=== PATIENT | female | born 1965 | race Caucasian/White ===

== ENCOUNTER 2019-02-24 21:37 | Emergency (ER) | payer SELFPAY ==
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
[2019-02-24] MEDS ORDERED: MORPHINE 2 MG/ML CARPUJECT IVP STA (23:44)
[2019-02-25 00:07] LABS: BASOPHILS # (AUTO) 0.1 10^3/uL (0.0-0.1); BASOPHILS % (AUTO) 1.1 %; EOSINOPHILS # (AUTO) 0.3 10^3/uL (0.0-0.7); EOSINOPHILS % (AUTO) 3.1 %; HGB - HEMOGLOBIN 14.7 g/dL (12.0-16.0); LYMPHOCYTES # (AUTO) 3.3 10^3/uL (1.5-3.5); LYMPHOCYTES % (AUTO) 41.1 %; MEAN CORPUSCULAR HGB CONC 34.7 g/dL (32.0-36.0); MEAN CORPUSCULAR VOLUME 95.1 fL (81.0-99.0); MEAN PLATELET VOLUME 8.7 fL (7.9-10.8); MONOCYTES # (AUTO) 0.6 10^3/uL (0.0-1.0); MONOCYTES % (AUTO) 7.8 %; NEUTROPHILS # (AUTO) 3.7 10^3/uL (1.5-6.6); NEUTROPHILS % (AUTO) 46.9 %; PLT - PLATELET COUNT 233 10^3/uL (130-450); RED BLOOD COUNT 4.44 10^6/uL (4.20-5.40); RED CELL DISTRIBUTION WIDTH 14.9 % (12.0-15.0)
[2019-02-25 00:17] LABS: ALBUMIN 4.3 g/dL (3.2-5.5); ALBUMIN/GLOBULIN RATIO 1.5 (1.0-2.2); BILIRUBIN,TOTAL 0.4 mg/dL (0.2-1.0); CALCIUM 9.2 mg/dL (8.5-10.3); CREATININE 0.9 mg/dL (0.4-1.0); TOTAL PROTEIN 7.1 g/dL (6.7-8.2)
[2019-02-25 00:22] LABS: TROPONIN I < 0.04 ng/mL (<0.49)
[2019-02-25 00:25] LABS: CREATINE KINASE MB 2.1 ng/mL (0.6-6.3)
[2019-02-25] MEDS ORDERED: IOVERSOL 320 100 ML VIAL IVP ONE ×4 (01:02→01:38)
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
[2019-02-25] MEDS ORDERED: oxyCODONE 5 MG TABLET PO STA (03:00)
[2019-02-25] MEDS ORDERED: POTASSIUM CHLORIDE 20 MEQ TABLET PO STA (03:01)
[2019-02-25 03:14] VITALS: BP 140/75
== END 2019-02-25 03:14 | disposition home or self-care (01) ==
LOC: EDBD → ED 21:37
DX: S22.22XA Fracture of body of sternum, initial encounter for closed fracture (principal); V43.52XA Car driver injured in collision with other type car in traffic accident, initial encounter; R06.2 Wheezing; F17.200 Nicotine dependence, unspecified, uncomplicated
CPT/HCPCS: 36415; 71046; 71260; 80053; 82550; 82553; 83690; 84484; 85025; 96374; 99283; A9270; Q9967

== ENCOUNTER 2019-03-14 15:22 | Emergency (ER) | payer MEDICAID ==
[2019-03-14] MEDS ORDERED: oxyCODONE 5 MG TABLET PO STA (15:45)
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
[2019-03-14 16:53] VITALS: BP 130/92
== END 2019-03-14 16:50 | disposition home or self-care (01) ==
LOC: ED 15:22
DX: S22.20XD Unspecified fracture of sternum, subsequent encounter for fracture with routine healing (principal); S16.1XXA Strain of muscle, fascia and tendon at neck level, initial encounter; R03.0 Elevated blood-pressure reading, without diagnosis of hypertension; F17.200 Nicotine dependence, unspecified, uncomplicated
CPT/HCPCS: 71046; 72040; 93005; 99283; A9270

== ENCOUNTER 2019-03-19 08:00 | Outpatient (CLI) | payer MEDICAID ==
[2019-03-19 19:03] LABS: CALCIUM 9.2 mg/dL (8.5-10.3)
== END 2019-03-19 23:59 | disposition home or self-care (01) ==
LOC: LAB.WCP 08:00
PROVIDERS: ATTEND Family Medicine
DX: E87.6 Hypokalemia (principal)
CPT/HCPCS: 36415; 80048

== ENCOUNTER 2019-04-03 10:46 | Outpatient (CLI) | payer MEDICAID ==
--- NOTE | 2019-04-03 17:04 | XRAY Report ---
Reason: LUMBAR SPINAL STENOSIS Procedure Date: 04/03/2019 Accession Number: [id number] / [id number] Procedure: XRN - Lumbar Spine 2 View CPT Code: FULL RESULT: EXAM: LUMBOSACRAL SPINE RADIOGRAPHY EXAM DATE: 04/03/2019 11:13 AM. CLINICAL HISTORY: Lumbar spinal stenosis. Back pain. COMPARISONS: None. TECHNIQUE: 3 views. FINDINGS: Alignment: Grade 1, 8 mm anterolisthesis of L4 on L5. No definite acute malalignment. Bones: Five abv-lto-uyskldm lumbar vertebral bodies are present. No fractures or bone lesions. Degenerative changes: Severe L5-S1 disk height loss. Mild L4-L5 disk height loss. No other significant degenerative changes seen. Soft Tissues: Normal. The visualized bowel gas pattern is normal. IMPRESSION: 1. Severe L5-S1 and mild L4-L5 degenerative disk disease. 2. Approximately 8 mm anterolisthesis of L4 on L5. This could be related to pars defects and/or degenerative changes. [facility]
== END 2019-04-03 10:47 | disposition home or self-care (01) ==
LOC: DI.N 10:46
PROVIDERS: ATTEND Family Medicine
DX: M51.36 Other intervertebral disc degeneration, lumbar region (principal); M51.37 Other intervertebral disc degeneration, lumbosacral region; M43.16 Spondylolisthesis, lumbar region
CPT/HCPCS: 72100

== ENCOUNTER 2019-05-02 12:23 | Day surgery (SDC) | payer MEDICAID ==
[2019-05-02] MEDS ORDERED: LACTATED RINGERS 1,000 ML IV ONE (13:01)
--- NOTE | 2019-05-02 13:18 | ANESTHESIA ---
Pre-Anesthesia VS, & Labs - Diagnosis abdominal pain - Procedure colonoscopy, EGD Vital Signs: Temp Pulse Resp BP Pulse Ox 36.8 C 86 18 138/94 H 98 05/02/19 12:37 05/02/19 12:37 05/02/19 12:37 05/02/19 12:37 05/02/19 12:37 Height 5 ft 8 in Weight (kg) 79 kg Body Mass Index 25.0 - NPO >8 hours - Is Patient ?: Not Applicable Home Medications and Allergies Home Medications: Ambulatory Orders Gabapentin 300 mg PO TID 04/23/19 Omeprazole 20 mg PO BID 04/23/19 Gabapentin 300 mg PO TID 04/23/19 Omeprazole 20 mg PO BID 04/23/19 Allergies/Adverse Reactions: Allergies Allergy/AdvReac Type Severity Reaction Status Date / Time Penicillins Allergy Hives Verified 03/14/19 15:31 varenicline [From Chantix] Allergy temporary Verified 04/23/19 10:39 memory loss Anes History & Medical History - Anesthetic History Anesthesia Complications: reports: Other-see comment (asthma attack) Family history of Anesthesia Complications: Denies Family history of Malignant Hyperthermia: Denies - Medical History Cardiovascular: reports: Hypertension, High cholesterol Pulmonary: reports: Asthma Gastrointestinal: reports: GERD, Ulcers Urinary: reports: None Musculoskeletal: reports: Chronic back pain, Other Endocrine/Autoimmune: reports: None Skin: reports: Other Smoking Status: Current every day smoker - Surgical History General: Colonoscopy, EGD Eyes Ears Nose Throat (EENT): Tonsil/Adenoidectomy Gynecologic: Hysterectomy Orthopedic: Other Exam General: Alert, Oriented x3, Cooperative, No acute distress Dental: Dentures full Upper, Dentures full Lower Mouth Openin Fingerbreadth Neck Mobility: Normal Mallampati classification: II Thyromental Distance: 4-6 cm Respiratory: Lungs clear, Normal breath sounds, No respiratory distress, No accessory muscle use Cardiovascular: Regular rate, Normal S1, Normal S2, No murmurs Plan Anesthesia Type: MAC Consent for Procedure(s) Verified and Reviewed: Yes Code Status: Attempt Resuscitation ASA classification: 3-Severe systemic disease Is this case an emergency?: No
[2019-05-02] MEDS ORDERED: LIDO GARGLE 30 ML BOTTLE ONE (13:22)
[2019-05-02] MEDS ORDERED: LIDO GARGLE 30 ML BOTTLE PO ONE (13:51)
[2019-05-02] MEDS ORDERED: LIDOCAINE-MPF 2% 5 ML VIAL IM ONE (14:17)
[2019-05-02] MEDS ORDERED: PROPOFOL 200 MG/20 ML VIAL IVP ONE (14:17)
[2019-05-02 14:42] VITALS: BP 128/64
== END 2019-05-02 12:24 | disposition home or self-care (01) ==
LOC: SDS 12:23
PROVIDERS: ATTEND Surgery
PROC: 0DB68ZX Excision of Stomach, Via Natural or Artificial Opening Endoscopic, Diagnostic (ICD-10-PCS; 2019-05-02)
PROC: 0DB58ZX Excision of Esophagus, Via Natural or Artificial Opening Endoscopic, Diagnostic (ICD-10-PCS; 2019-05-02)
PROC: 0DBP8ZZ Excision of Rectum, Via Natural or Artificial Opening Endoscopic (ICD-10-PCS; principal; 2019-05-02 14:00)
PROC: 0DB98ZX Excision of Duodenum, Via Natural or Artificial Opening Endoscopic, Diagnostic (ICD-10-PCS; 2019-05-02 14:00)
DX: K29.80 Duodenitis without bleeding (principal); K44.9 Diaphragmatic hernia without obstruction or gangrene; K21.9 Gastro-esophageal reflux disease without esophagitis; R10.32 Left lower quadrant pain; R10.31 Right lower quadrant pain; K62.1 Rectal polyp; K64.8 Other hemorrhoids; K64.4 Residual hemorrhoidal skin tags; G89.29 Other chronic pain; M54.9 Dorsalgia, unspecified; I10 Essential (primary) hypertension; F17.210 Nicotine dependence, cigarettes, uncomplicated; Z85.41 Personal history of malignant neoplasm of cervix uteri; Z90.710 Acquired absence of both cervix and uterus; Z79.891 Long term (current) use of opiate analgesic; Z87.09 Personal history of other diseases of the respiratory system; Z87.11 Personal history of peptic ulcer disease
CPT/HCPCS: 43239; 45380; 87081; A9270; J7120

== ENCOUNTER 2019-05-04 08:45 | Outpatient (CLI) | payer MEDICAID ==
[2019-05-04] MEDS ORDERED: GADOBUTROL 10 MMOL/10 ML VIAL ONE (10:05)
[2019-05-04] MEDS ORDERED: GADOBUTROL 10 MMOL/10 ML VIAL IV ONE (10:13)
--- NOTE | 2019-05-04 14:34 | MRI Report ---
Reason: LUMBAR SPINAL STENOSIS Procedure Date: 05/04/2019 Accession Number: [id number] / [id number] Procedure: MRI - Lumbar Spine W/WO CPT Code: FULL RESULT: EXAM: MRI LUMBAR SPINE WITHOUT AND WITH CONTRAST EXAM DATE: 05/04/2019 10:23 AM. CLINICAL HISTORY: Chronic low back pain. Bilateral leg weakness. COMPARISONS: None. TECHNIQUE: Multiplanar, multisequence T1-weighted and fluid-sensitive sequences of the lumbar spine from T12 to S1 before and after administration of intravenous contrast. Other: None. IV contrast: 8 mL of Gadavist. FINDINGS: Neurologic Structures: The conus terminates at L1-L2. The conus medullaris and cauda equina are unremarkable. Alignment: There is a 5 mm grade 1 anterolisthesis at L4-L5. Bone Marrow: Five xuy-kmr-hemziip lumbar vertebral bodies are assumed. There is Modic type II change at the anterior margin of the L1-L2 endplates. Disk Levels/Facets: T12-L1: Unremarkable. L1-L2: There is a left paracentral disk protrusion causing minimal canal narrowing. The foramina are patent. L2-L3: Unremarkable. L3-L4: There is a broad-based posterior disk bulge with moderate facet osteoarthritis and ligamentum flavum redundancy causing moderate canal narrowing. Mild left and moderate right foraminal narrowing. Endplate osteophytes posteriorly displace the right L3 nerve root lateral to the neural foramen. L4-L5: There is an anterolisthesis at this level. There is severe facet joint osteoarthritis and ligamentum flavum redundancy. The findings cause moderate canal narrowing with compression of both L5 nerve roots in the lateral recesses. The cauda equina nerve roots are bunched, but CSF is still visible between the nerve roots. There is moderate bilateral foraminal narrowing. L5-S1: There is disk desiccation and loss of disk height. There are circumferential osteophytes. There is a left paracentral disk extrusion posteriorly displacing the left S1 nerve root in the lateral recess. There is mild canal narrowing. There is severe right and mild left foraminal narrowing. On the right, a foraminal disk protrusion superiorly displaces the right L5 nerve root. Spinal Canal: No enhancing masses within the spinal canal. No epidural abscess. Musculature: Normal. No edema, abnormal enhancement, or fatty atrophy. Other: The visualized retroperitoneum is unremarkable. IMPRESSION: 1. Grade 1 anterolisthesis at L4-L5. 2. L3-L4: There is moderate canal narrowing. Mild left and moderate right foraminal narrowing. Endplate osteophytes posteriorly displace the right L3 nerve root lateral to the neural foramen. 3. L4-L5: The anterolisthesis and severe facet joint osteoarthritis cause moderate canal narrowing with compression of both L5 nerve roots in the lateral recesses. The cauda equina nerve roots are bunched, but CSF is still visible between the nerve roots. There is moderate bilateral foraminal narrowing. 4. L5-S1: There is a left paracentral disk extrusion posteriorly displacing the left S1 nerve root in the lateral recess. There is mild canal narrowing. There is severe right and mild left foraminal narrowing. On the right, a foraminal disk protrusion superiorly displaces the right L5 nerve root. Comment: The following findings are so common in adults without low back pain that while we report their presence, they must be interpreted with caution and in the context of the clinical situation. (Reference Dorisk et al, Spine 2001) Prevalence of findings in patients without low back pain: Disk degeneration (any evidence): 92% Disk desiccation/T2 signal loss: 83% Disk height loss: 56% Disk bulge: 64% Disk protrusion: 32% Annular tear/high intensity zone: 38% RADIA
== END 2019-05-04 08:46 | disposition home or self-care (01) ==
LOC: DI 08:45
PROVIDERS: ATTEND Family Medicine
DX: M48.061 Spinal stenosis, lumbar region without neurogenic claudication (principal); M47.816 Spondylosis without myelopathy or radiculopathy, lumbar region; M51.27 Other intervertebral disc displacement, lumbosacral region
CPT/HCPCS: 72158; A9585

== ENCOUNTER 2019-05-25 17:00 | Outpatient (CLI) | payer MEDICAID | END 2019-05-25 23:59 | disposition home or self-care (01) | LOC: LAB.R 17:00 | PROVIDERS: ATTEND Physician Assistant | DX: R35.0 Frequency of micturition (principal) | CPT/HCPCS: 87086 ==

== ENCOUNTER 2019-05-26 14:47 | Outpatient (CLI) | payer MEDICAID ==
--- NOTE | 2019-05-27 00:43 | XRAY Report ---
Reason: PRODUCTIVE COUGH PURULENT SPUTUM, CHEST WALL PAIN Procedure Date: 05/26/2019 Accession Number: [id number] / [id number] Procedure: XR - Ribs w/PA Chest LT CPT Code: FULL RESULT: EXAM: LEFT RIB RADIOGRAPHY EXAM DATE: 05/26/2019 03:08 PM. CLINICAL HISTORY: PRODUCTIVE COUGH PURULENT SPUTUM, CHEST WALL PAIN. COMPARISON: CHEST 2 VIEW 03/14/2019 4:08 PM. TECHNIQUE: 1 view of the chest and 2 views of the ribs. FINDINGS: Bones: Normal. No fracture or bone lesion. Lungs: No focal opacities. No pneumothorax. No pleural effusions. Mediastinum: Heart and mediastinal contours are unremarkable. Other: None. IMPRESSION: Normal chest and rib radiography. RADIA
== END 2019-05-26 14:48 | disposition home or self-care (01) ==
LOC: DI 14:47
PROVIDERS: ATTEND Physician Assistant
DX: R05 Cough (principal); R07.89 Other chest pain

== ENCOUNTER 2019-05-29 11:10 | Day surgery (SDC) | payer MEDICAID ==
[2019-05-29] MEDS ORDERED: CEFAZOLIN SODIUM IN 0.9 % NACL 2 GM/100 ML BAG IV ONE (11:32)
[2019-05-29] MEDS ORDERED: LACTATED RINGERS 1,000 ML IV ONE ×2 (11:50→13:40)
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
[2019-05-29] MEDS ORDERED: LIDOCAINE 1%-EPI 1:100000 20 ML MDV ONE (12:21)
[2019-05-29] MEDS ORDERED: BUPIVACAINE 0.5%-EPI 1:200000 PF 30 ML VIAL ONE (12:21)
[2019-05-29] MEDS ORDERED: LIDOCAINE 1% 50 ML MDV ONE (12:23)
[2019-05-29] MEDS ORDERED: BUPIVACAINE 0.5%-EPI 1:200000 PF 30 ML VIAL SUBQ ONE (12:48)
[2019-05-29] MEDS ORDERED: LIDOCAINE 1% 50 ML MDV SUBQ ONE (12:48)
[2019-05-29] MEDS ORDERED: ONDANSETRON 4 MG/2 ML VIAL IVP PRN (13:19)
[2019-05-29] MEDS ORDERED: HYDROmorphone 0.5 MG/0.5 ML SYRINGE IVP PRN (13:19)
--- NOTE | 2019-05-29 13:19 | OPERATIVE REPORT ---
Operative Report - General Procedure Date: 05/29/19 Planned Procedure: Umbilical Hernia Repair Pre-Op Diagnosis: Umbilical Hernia Procedure Performed: Umbilical Hernia Repair Post Op Diagnosis: Same - Procedure Note Primary Surgeon: Dustin Anesthesia Provider: DHRUV Negrete Anesthesia Technique: General LMA, Local Pathology: None Estimated Blood Loss (mL): 10 Indications: Painful Umbilical Hernia Findings: 1.5 cm umbilical defect containing omentum Complications: None apparent - Other Other Information/Narrative: After obtaining informed consent, the patient is brought to the operating room and placed in the supine position on the operating table. Following successful induction of general anesthesia with laryngeal mask airway, appropriate padding of all bony prominences, and placement of appropriate monitors, the abdomen was prepped and draped in the standard surgical fashion. A timeout was held per scope protocol. Following infiltration with local anesthetic to create a field block, an incision was created directly through the umbilicus at the site of the defect. This was placed inferior to the patient's existing piercing. The incision was carried through the skin and subcutaneous tissue to the surface the abdominal wall below. The defect was easily identified. The hernia sac was liberated from the surface of the dermis. The edges of the hernia were defined and adhesions of the hernia sac to the fascia were lysed allowing thOmentum and abdominal contents to retract back into the abdominal cavity. At this point I elected to repair the hernia directly using Prolene suture. 3 interrupted #1 Prolene sutures were placed to approximate the opening. The repair was checked for completeness. There were no spaces available for placement of even the tip of the Adson forcep.The wound was then irrigated with warm saline solution. The umbilicus was then reconstructed by sewing the umbilical skin together and attaching it to the fascia beneath. This was done in 2 layers with Vicryl and Monocryl suture. All sponge, needle, and instrument counts were correct at the conclusion of the case. Dermabond was applied to the skin. Patient was allowed to awake from anesthesia without significant difficulty and taken to the postanesthesia care unit in good condition.
[2019-05-29] MEDS ORDERED: HYDROmorphone 2 MG TABLET PO PRN (13:22)
[2019-05-29] MEDS ORDERED: DEXAMETHASONE 4 MG/ML VIAL IVP ONE (13:23)
[2019-05-29] MEDS ORDERED: ePHEDrine 50 MG/ML VIAL IVP ONE (13:23)
[2019-05-29] MEDS ORDERED: ONDANSETRON 4 MG/2 ML VIAL IVP ONE (13:23)
[2019-05-29] MEDS ORDERED: PROPOFOL 200 MG/20 ML VIAL IVP ONE (13:23)
[2019-05-29] MEDS ORDERED: MIDAZOLAM 2 MG/2 ML VIAL IVP ONE (13:23)
[2019-05-29] MEDS ORDERED: KETOROLAC 30 MG/ML VIAL IVP ONE (13:23)
[2019-05-29] MEDS ORDERED: fentaNYL 100 MCG/2 ML VIAL IVP ONE (13:23)
[2019-05-29 15:25] VITALS: BP 130/82
== END 2019-05-29 11:11 | disposition home or self-care (01) ==
LOC: SDS 11:10
PROVIDERS: ATTEND Surgery
PROC: 0WQF0ZZ Repair Abdominal Wall, Open Approach (ICD-10-PCS; principal; 2019-05-29 13:00)
DX: K42.0 Umbilical hernia with obstruction, without gangrene (principal); Z87.891 Personal history of nicotine dependence
CPT/HCPCS: 49585; A9270; J0690; J7120

== ENCOUNTER 2019-10-31 12:11 | Outpatient (CLI) | payer MEDICAID ==
[2019-10-31 19:51] LABS: FOLLICLE STIMULATING HORMONE 61.71 mIU/mL
== END 2019-10-31 23:59 | disposition home or self-care (01) ==
LOC: LAB.WCP 12:11
PROVIDERS: ATTEND Physician Assistant
DX: N95.1 Menopausal and female climacteric states (principal)
CPT/HCPCS: 36415; 83001; 84443

== ENCOUNTER 2020-06-26 12:28 | Outpatient (CLI) | payer MEDICAID ==
[2020-06-26] MEDS ORDERED: IOVERSOL 320 100 ML VIAL IVP ONE ×2 (12:40→17:38)
[2020-06-26] MEDS ORDERED: IOVERSOL 320 50 ML VIAL ONE (12:40)
[2020-06-26 13:08] LABS: BASOPHILS # (AUTO) 0.1 10^3/uL (0.0-0.1); BASOPHILS % (AUTO) 1.1 %; EOSINOPHILS # (AUTO) 0.3 10^3/uL (0.0-0.7); HGB - HEMOGLOBIN 15.5 g/dL (12.0-16.0); LYMPHOCYTES # (AUTO) 3.7 10^3/uL (1.5-3.5); LYMPHOCYTES % (AUTO) 41.3 %; MEAN CORPUSCULAR HEMOGLOBIN 31.4 pg (27.0-31.0); MEAN CORPUSCULAR HGB CONC 33.5 g/dL (32.0-36.0); MEAN CORPUSCULAR VOLUME 93.7 fL (81.0-99.0); MEAN PLATELET VOLUME 9.5 fL (7.9-10.8); MONOCYTES # (AUTO) 0.6 10^3/uL (0.0-1.0); MONOCYTES % (AUTO) 6.7 %; NEUTROPHILS # (AUTO) 4.2 10^3/uL (1.5-6.6); NEUTROPHILS % (AUTO) 47.5 %; PLT - PLATELET COUNT 295 10^3/uL (130-450); RED BLOOD COUNT 4.93 10^6/uL (4.20-5.40); RED CELL DISTRIBUTION WIDTH 14.1 % (12.0-15.0); WHITE BLOOD COUNT 8.9 x10^3/uL (4.8-10.8)
[2020-06-26 13:21] LABS: ALBUMIN 4.4 g/dL (3.2-5.5); ALBUMIN/GLOBULIN RATIO 1.3 (1.0-2.2); BILIRUBIN,TOTAL 0.7 mg/dL (0.2-1.0); CALCIUM 9.7 mg/dL (8.5-10.3); TOTAL PROTEIN 7.7 g/dL (6.7-8.2)
--- NOTE | 2020-06-26 14:32 | CT Report ---
PROCEDURE: Abdomen/Pelvis W INDICATIONS: HX OF CERVICAL CANCER, abdominal pain near the umbilicus. CONTRAST: IV CONTRAST: Optiray 320 ml: 100 PO CONTRAST: Optiray 320 ml50 TECHNIQUE: After the administration of nonionic contrast, 5 mm thick sections acquired from the diaphragms to th e symphysis. 5 mm thick coronal and sagittal reformats were acquired. For radiation dose reduction, the following was used: automated exposure control, adjustment of mA and/or kV according to patient size. COMPARISON: Prior chest CT 02/25/2019. FINDINGS: Image quality: Excellent. ABDOMEN: Lung bases: Lung bases are clear. Heart size is normal. Solid organs: Liver and spleen are normal in size and enhancement. Gallbladder appears normal Bili prisca system is non dilated. Pancreas enhances normally except for presence of a small ovoid sharply d emarcated posterior cyst measuring 8 x 11 mm and without change in morphology from the prior chest CT scanning that included this area in February of last year. No adrenal nodules. Kidneys demonstrate norm al size and enhancement, without hydronephrosis. Peritoneum and bowel: Bowel loops demonstrate normal wall thickness and caliber. No free fluid or a ir. Nodes and vessels: No retroperitoneal or mesenteric adenopathy by size criteria. Aorta and inferior vena cava are unchanged in size with 3.2 cm maximal axial dimension mid to-distal abdominal aortic a neurysm showing no evidence of perianeurysmal inflammation or dissection. Miscellaneous: No ventral hernias. PELVIS: Genitourinary: Bladder wall thickness is normal. Miscellaneous: No inguinal hernias or adenopathy. No CT evidence of recurrent cervical carcinoma or colitis/appendicitis. No inflammation adjacent to the area of prior spine fusion surgery low lumbosa cral spine. Bones: No suspicious bony lesions. No vertebral body compression fractures. IMPRESSION: Note: Findings called to and discussed in detail with the ordering health care provider at time of image interpretation. 1. Source of sudden onset lower abdominal pain is not identified. No recurrent cervical carcinoma or evidence of colitis/appendicitis is found. 2. Stable appearance of a small ovoid sharply demarcated water density cyst at the posterior border o f the pancreatic body/tail junction. 3. Mid to distal abdominal aortic aneurysm measures up to 3.2 cm in maximal axial dimension and is fr ee of evidence of perianeurysmal inflammation or dissection. Reviewed by: Matias Villalba MD on 06/26/2020 2:31 PM PDT Approved by: Matias Villalba MD on 06/26/2020 2:31 PM PDT Station ID: [id number]
[2020-06-26] MEDS ORDERED: IOVERSOL 320 50 ML VIAL PO ONE (17:37)
== END 2020-06-26 12:29 | disposition home or self-care (01) ==
LOC: DI 12:28
PROVIDERS: ATTEND Family Medicine
DX: R10.9 Unspecified abdominal pain (principal); Z85.41 Personal history of malignant neoplasm of cervix uteri; K86.2 Cyst of pancreas; I71.4 Abdominal aortic aneurysm, without rupture
CPT/HCPCS: 36415; 74177; 80053; 83690; 85025; Q9967

== ENCOUNTER 2020-07-23 12:51 | Outpatient (CLI) | payer MEDICAID ==
--- NOTE | 2020-07-24 13:20 | Mammography Report ---
BILATERAL DIGITAL SCREENING MAMMOGRAM 3D/2D: 07/23/2020 CLINICAL: Routine screening. No prior exams were available for comparison. There are scattered fibroglandular elements in both br easts. No significant masses, calcifications, or other findings are seen in either breast. IMPRESSION: NEGATIVE There is no mammographic evidence of malignancy. A 1 year screening mammogram is recommended. This exam was interpreted at Station ID: [id number]. NOTE: For mammograms, a report in lay terms will be sent to the patient. Approximately 15% of breast malignancies will not be visualized mammographically. In the management of a palpable breast mass, a negative mammogram must not discourage biopsy of a clinically suspicious lesion. Electronically Signed By: Blaine shook/pietro:07/23/2020 15:47:28 ACR BI-RADS Category 1: Negative 3341F PARENCHYMAL PATTERN: (A) - The breast(s) demonstrate(s) scattered fibroglandular densities. BI-RADS CATEGORY: (1) - 1 RECOMMENDATION: (ANNUAL) - Recommend routine annual screening mammography. [id number] 1 year screening LATERALITY: (B)
== END 2020-07-23 12:52 | disposition home or self-care (01) ==
LOC: DI.N 12:51
DX: Z12.31 Encounter for screening mammogram for malignant neoplasm of breast (principal)
CPT/HCPCS: 77063; 77067

== ENCOUNTER 2020-10-20 19:01 | Outpatient (CLI) | payer MEDICAID | END 2020-10-20 19:02 | disposition home or self-care (01) | LOC: COV 19:01 | PROVIDERS: ATTEND Family Medicine | DX: M79.10 Myalgia, unspecified site (principal); R53.83 Other fatigue; R43.8 Other disturbances of smell and taste; J34.89 Other specified disorders of nose and nasal sinuses; R11.2 Nausea with vomiting, unspecified; Z20.822 Contact with and (suspected) exposure to COVID-19 ==